=== PATIENT | female | born 1955 | race African-American/Black ===

== ENCOUNTER 2017-10-23 07:13 | Day surgery (SDC) | payer OTHER ==
[2017-10-23 08:49] VITALS: BMI 36.0
[2017-10-23 09:59] VITALS: TEMP 98
[2017-10-23 11:46] VITALS: BP 152/67; PULSE 53
== END 2017-10-23 11:00 | disposition home or self-care (01) ==
LOC: JASU-ENDO 07:13
PROVIDERS: ATTEND Internal Medicine Gastroenterology
PROC: 0DJD8ZZ Inspection of Lower Intestinal Tract, Via Natural or Artificial Opening Endoscopic (ICD-10-PCS; principal; 2017-10-23 09:45)
DX: K62.5 Hemorrhage of anus and rectum (principal); K64.8 Other hemorrhoids; I10 Essential (primary) hypertension; R01.1 Cardiac murmur, unspecified; E78.5 Hyperlipidemia, unspecified; F31.9 Bipolar disorder, unspecified

== ENCOUNTER 2020-07-15 04:38 | Day surgery (SDC) | payer OTHER ==
[2020-07-13 14:46] VITALS: BMI 37.2
[2020-07-15 09:48] VITALS: TEMP 97.1
[2020-07-15 15:22] VITALS: BP 146/85; PULSE 62
== END 2020-07-15 11:20 | disposition home or self-care (01) ==
LOC: JASU-ENDO 04:38
PROVIDERS: ATTEND Internal Medicine Gastroenterology
PROC: 0DB78ZX Excision of Stomach, Pylorus, Via Natural or Artificial Opening Endoscopic, Diagnostic (ICD-10-PCS; principal; 2020-07-15 09:30)
DX: R10.13 Epigastric pain (principal)
CPT/HCPCS: 88305-TC; 88342-TC

== ENCOUNTER 2021-09-16 07:47 | Emergency (ER) | payer OTHER ==
[2021-09-16 07:57] VITALS: TEMP 98.2; BMI 37.2
[2021-09-16 08:52] VITALS: BP 142/58; PULSE 78; RESP 16
[2021-09-16 08:55] LABS: BASO % 0.5 % (0-2.0); EOS % 1.1 % (0-4.5); HEMATOCRIT 34.9 % (32.4-45.2); HEMOGLOBIN 11.2 GM/dL (10.7-15.3); LYMPH % 21.3 % (8-40); MCH 25.5 pg (25.7-33.7); MEAN CELL VOLUME 79.5 fl (80-96); MEAN PLT VOLUME 7.5 fl (7.5-11.1); MONO % 6.9 % (3.8-10.2); NEUT % 70.2 % (42.8-82.8); PLATELET COUNT 287 10^3/uL (134-434); RBC 4.38 M/mm3 (3.60-5.2); RDW 15.6 % (11.6-15.6); WHITE BLOOD COUNT 5.5 K/mm3 (4.0-10.0)
[2021-09-16 09:01] LABS: INR 1.13 (0.83-1.09)
[2021-09-16 09:04] LABS: ACTIVATED PTT 36.1 SECONDS (25.2-36.5)
[2021-09-16 09:31] LABS: ALBUMIN 3.4 g/dl (3.4-5.0); CALCIUM 9.3 mg/dL (8.5-10.1); MAGNESIUM 2.2 mg/dL (1.8-2.4)
[2021-09-16 09:35] LABS: CREATININE 0.8 mg/dL (0.55-1.3)
[2021-09-16 09:36] LABS: BILIRUBIN,TOTAL 0.3 mg/dL (0.2-1); TOT PROT 7.6 g/dl (6.4-8.2)
[2021-09-16 11:03] LABS: BLOOD UREA NITROGEN 14.4 mg/dL (7-18); CALCIUM 8.9 mg/dL (8.5-10.1); MAGNESIUM 2.3 mg/dL (1.8-2.4)
[2021-09-16 11:07] LABS: CREATININE 0.6 mg/dL (0.55-1.3)
[2021-09-16] MEDS ORDERED: ACETAMINOPHEN 1000 MG/100 ML BAG IVPB ONE (11:18)
[2021-09-16] MEDS ORDERED: ACETAMINOPHEN INJECTION 100 ML IVPB ONE (11:19)
== END 2021-09-16 11:48 | disposition home or self-care (01) ==
LOC: JER 07:47
PROC: 3E0333Z Introduction of Anti-inflammatory into Peripheral Vein, Percutaneous Approach (ICD-10-PCS; principal; 2021-09-16)
DX: S76.912A Strain of unspecified muscles, fascia and tendons at thigh level, left thigh, initial encounter (principal); M79.605 Pain in left leg; X50.0XXA Overexertion from strenuous movement or load, initial encounter
CPT/HCPCS: 36415; 80048; 80053; 83735; 85025; 85610; 85730; 93005; 93010; 93971-TC; 99285-25

== ENCOUNTER 2022-06-30 04:08 | Day surgery (SDC) | payer OTHER ==
[2022-05-19 08:22] VITALS: BMI 33.5
[2022-06-30] MEDS ORDERED: LIDOCAINE HCL 1%, 10 MG/ML (10ML VIAL) MDV ONE (07:31)
[2022-06-30] MEDS ORDERED: BUPIVACAINE HCL/PF 0.5% (5MG/ML) 10 ML VIAL ONE (07:31)
[2022-06-30] MEDS ORDERED: LIDOCAINE HCL 1%, 10 MG/ML (20ML VIAL) INF ONE ×4 (07:38→09:03)
[2022-06-30] MEDS ORDERED: BUPIVACAINE HCL/PF 0.5% (5MG/ML) 10 ML VIAL NR ONE ×4 (07:38→09:03)
[2022-06-30] MEDS ORDERED: LIDOCAINE HCL/PF 2% SDV 5ML VIAL ONE (07:59)
[2022-06-30] MEDS ORDERED: MIDAZOLAM HCL 2 MG/2 ML SINGLE DOSE VIAL ONE (08:00)
[2022-06-30] MEDS ORDERED: PROPOFOL 40 ML ONE (08:00)
[2022-06-30] MEDS ORDERED: SUCCINYLCHOLINE CHLORIDE 200 MG/10 ML SYRINGE ONE (08:19)
[2022-06-30] MEDS ORDERED: ROCURONIUM BROMIDE 50 MG/5 ML SYRINGE ONE (08:19)
[2022-06-30] MEDS ORDERED: ceFAZolin SODIUM 1 GM VIAL IVPB ONE (08:47)
[2022-06-30] MEDS ORDERED: ceFAZolin SODIUM 1 GM VIAL ONE (08:48)
[2022-06-30] MEDS ORDERED: DEXAMETHASONE SOD PHOSPHATE 4 MG/1 ML VIAL ONE (08:48)
[2022-06-30] MEDS ORDERED: ONDANSETRON 4 MG/2 ML VIAL ONE (08:48)
[2022-06-30] MEDS ORDERED: PROPOFOL 20 ML ONE (10:18)
[2022-06-30] MEDS ORDERED: ONDANSETRON 4 MG/2 ML VIAL IVPUSH PRN (10:53)
[2022-06-30] MEDS ORDERED: oxyCODONE HCL 5 MG TABLET PO PRN (10:53)
[2022-06-30 12:47] VITALS: RESP 18
[2022-06-30 14:34] VITALS: BP 130/63; PULSE 79; TEMP 98.3
== END 2022-06-30 13:50 | disposition home or self-care (01) ==
LOC: JASU-SURG 04:08
PROVIDERS: ATTEND Surgery
PROC: 0DBU0ZZ Excision of Omentum, Open Approach (ICD-10-PCS; 2022-06-30)
PROC: 0WUF0JZ Supplement Abdominal Wall with Synthetic Substitute, Open Approach (ICD-10-PCS; principal; 2022-06-30 08:30)
DX: K43.2 Incisional hernia without obstruction or gangrene (principal)
CPT/HCPCS: 88304-TC; 88305-TC; 94760

== ENCOUNTER 2023-10-10 15:57 | Emergency (ER) | payer OTHER ==
[2023-10-10 16:10] VITALS: BP 141/82; PULSE 81; RESP 17; TEMP 98.7; BMI 36.8
[2023-10-10] MEDS ORDERED: MECLIZINE HCL 25 MG TABLET (FP) ONE (16:54)
[2023-10-10] MEDS ORDERED: ACETAMINOPHEN 500 MG TABLET (FP) ONE (16:54)
[2023-10-10] MEDS: ACETAMINOPHEN 500 MG TABLET (FP) PO ONE (16:56)
[2023-10-10] MEDS: MECLIZINE HCL 25 MG TABLET (FP) PO ONE (16:56)
== END 2023-10-10 18:01 | disposition home or self-care (01) ==
LOC: JER 15:57
DX: R51.9 Headache, unspecified (principal); R42 Dizziness and giddiness; M54.2 Cervicalgia; M54.6 Pain in thoracic spine; R01.1 Cardiac murmur, unspecified
CPT/HCPCS: 70450-TC; 99284-25

== ENCOUNTER 2024-09-16 22:35 | Observation (INO) | payer OTHER ==
[2024-09-16] MEDS ORDERED: MECLIZINE HCL 12.5 MG TABLET ONE (23:11)
[2024-09-16 23:35] LABS: ABSOLUTE IMMATURE GRANULOCYTES 0.02 x10^3/uL (0.0-0.031); BASOPHILS # 0.02 x10^3/uL (0.01-0.08); EOSINOPHIL % 2.1 % (0.7-5.8); EOSINOPHILS # 0.13 x10^3/uL (0.04-0.36); MCHC 32.0 g/dl (32.2-35.5); MEAN CELL VOLUME 81.4 fl (79.4-94.8); MEAN PLT VOLUME 8.9 fl (9.4-12.3); MONOCYTE # 0.51 x10^3/uL (0.24-0.86); MONOCYTE % 8.1 % (4.7-12.5); RDW 15.9 % (12.4-16.4)
[2024-09-16] MEDS ORDERED: METOCLOPRAMIDE HCL INJECTION 10 MG/2 ML VIAL ONE (23:45)
[2024-09-16] MEDS ORDERED: ACETAMINOPHEN INJECTION 100 ML ONE (23:45)
[2024-09-16] MEDS ORDERED: MAG HYDROX/AL HYDROX/SIMETH 30 ML UNIT-DOSE CUP ONE (23:45)
[2024-09-16] MEDS: METOCLOPRAMIDE HCL INJECTION 10 MG/2 ML VIAL IVPUSH ONE (23:53)
[2024-09-16] MEDS: ACETAMINOPHEN 1000 MG/100 ML BAG IVPB ONE (23:53)
[2024-09-16] MEDS: MECLIZINE HCL 12.5 MG TABLET PO ONE (23:53)
[2024-09-16] MEDS: MAG HYDROX/AL HYDROX/SIMETH 30 ML UNIT-DOSE CUP PO ONE (23:53)
[2024-09-17 00:30] LABS: ALK PHOS 99 U/L (45-117); CO2 27 mmol/L (21-32); CREATININE 0.8 mg/dL (0.55-1.3); GLUCOSE,RANDOM 133 mg/dL (74-106); SGOT/AST 19 U/L (15-37); SGPT/ALT 20 U/L (13-61); TOT PROT 7.3 g/dl (6.4-8.2)
[2024-09-17] MEDS ORDERED: POTASSIUM CHLORIDE TABS 20 MEQ TABLET.ER (FP) PO ONE (01:08)
[2024-09-17] MEDS: POTASSIUM CHLORIDE ORAL LIQUID 20 MEQ/15 ML PO ONE ×2 (01:59→08:21)
[2024-09-17] MEDS: KCL 10 MEQ IVPB 10 MEQ/100 ML INFUS.BAG IVPB SCH (01:59)
[2024-09-17] MEDS ORDERED: IBUPROFEN 400 MG TABLET (FP) PO ONE (03:15)
[2024-09-17] MEDS: IBUPROFEN 400 MG TABLET (FP) PO ONE (03:25)
[2024-09-17] MEDS ORDERED: ASPIRIN 81 MG CHEWABLE TABLETS ONE (06:28)
[2024-09-17] MEDS ORDERED: MAG HYDROX/AL HYDROX/SIMETH 30 ML UNIT-DOSE CUP ONE (06:28)
[2024-09-17 06:38] LABS: URINE APPEARANCE CLEAR; URINE BILIRUBIN NEGATIVE (NEGATIVE); URINE COLOR YELLOW; URINE GLUCOSE (UA) NEGATIVE (NEGATIVE); URINE KETONE NEGATIVE (NEGATIVE); URINE LEUK ESTERASE NEGATIVE (NEGATIVE); URINE NITRITE NEGATIVE (NEGATIVE); URINE PROTEIN NEGATIVE (NEGATIVE); URINE UROBILINOGEN 0.2 mg/dL (0.2-1.0)
[2024-09-17] MEDS: ASPIRIN 325 MG TABLET PO ONE (06:38)
[2024-09-17] MEDS: MAG HYDROX/AL HYDROX/SIMETH 30 ML UNIT-DOSE CUP PO ONE ×2 (06:38→10:20)
[2024-09-17] MEDS: ASPIRIN 81 MG CHEWABLE TABLETS PO ONE (06:38)
[2024-09-17] MEDS ORDERED: POTASSIUM CHLORIDE ORAL LIQUID 20 MEQ/15 ML ONE (08:15)
[2024-09-17] MEDS ORDERED: ACETAMINOPHEN 325 MG TABLET (FP) PO PRN (09:05)
[2024-09-17 10:05] VITALS: BMI 39.0
[2024-09-17] MEDS: ATENOLOL 50 MG TABLET (FP) PO SCH (10:19)
[2024-09-17] MEDS: FAMOTIDINE 20 MG TABLET PO ONE (10:20)
[2024-09-17] MEDS: SODIUM CHLORIDE 1,000 ML IV SCH (10:22)
[2024-09-17] MEDS: METHIMAZOLE 5 MG TABLET PO SCH (10:37)
[2024-09-17 12:25] LABS: CO2 30.0 mmol/L (21-32); GLUCOSE,RANDOM 105.0 mg/dL (74-106)
[2024-09-17 12:28] LABS: CREATININE 0.7 mg/dL (0.55-1.3)
[2024-09-17] MEDS: MAGNESIUM 2GM/50ML STERILE WATER IVPB IVPB ONE (15:01)
[2024-09-17] MEDS: ROSUVASTATIN CA 20 MG TABLET PO SCH (21:59)
[2024-09-17] MEDS: TOPIRAMATE 25 MG TABLET PO SCH (21:59)
[2024-09-17] MEDS ORDERED: ROSUVASTATIN CA 40 MG TABLET PO SCH (22:00)
[2024-09-17] MEDS: PRAMIPEXOLE DIHYDROCHLORIDE 0.125 MG TABLET PO SCH (22:00)
[2024-09-17] MEDS: FAMOTIDINE 20 MG TABLET PO SCH (22:01)
[2024-09-18 06:30] LABS: ABSOLUTE IMMATURE GRANULOCYTES 0.02 x10^3/uL (0.0-0.031); BASOPHILS # 0.02 x10^3/uL (0.01-0.08); EOSINOPHIL % 3.2 % (0.7-5.8); EOSINOPHILS # 0.17 x10^3/uL (0.04-0.36); MCHC 31.7 g/dl (32.2-35.5); MEAN CELL VOLUME 82.9 fl (79.4-94.8); MEAN PLT VOLUME 9.3 fl (9.4-12.3); MONOCYTE # 0.44 x10^3/uL (0.24-0.86); MONOCYTE % 8.3 % (4.7-12.5); RDW 16.3 % (12.4-16.4)
[2024-09-18 06:59] LABS: CO2 29.0 mmol/L (21-32); GLUCOSE,RANDOM 91.0 mg/dL (74-106)
[2024-09-18 07:03] LABS: CREATININE 0.7 mg/dL (0.55-1.3); SGOT/AST 17.0 U/L (15-37); SGPT/ALT 17.0 U/L (13-61)
[2024-09-18 07:04] LABS: TOT PROT 6.4 g/dl (6.4-8.2)
[2024-09-18 07:05] LABS: ALK PHOS 84.0 U/L (45-117)
[2024-09-18] MEDS: ENOXAPARIN NA (PORCINE) 40 MG/0.4 ML DISP.SYRIN SQ SCH (09:30)
[2024-09-18] MEDS: ASPIRIN 81 MG CHEWABLE TABLETS PO SCH (09:33)
[2024-09-18 14:43] VITALS: BP 100/53; PULSE 57; RESP 17; TEMP 98.3
== END 2024-09-18 15:18 | disposition home or self-care (01) ==
LOC: JER 22:35 → JERBED 09-17 07:48 → J4W 09-17 09:15
PROVIDERS: ADMIT Internal Medicine; ATTEND Internal Medicine
DX: G43.809 Other migraine, not intractable, without status migrainosus (principal); R07.89 Other chest pain; E87.6 Hypokalemia; R79.89 Other specified abnormal findings of blood chemistry; I10 Essential (primary) hypertension; R00.1 Bradycardia, unspecified; D50.9 Iron deficiency anemia, unspecified; R01.1 Cardiac murmur, unspecified; E78.5 Hyperlipidemia, unspecified; E05.90 Thyrotoxicosis, unspecified without thyrotoxic crisis or storm; K21.9 Gastro-esophageal reflux disease without esophagitis; G25.81 Restless legs syndrome; Z79.82 Long term (current) use of aspirin
CPT/HCPCS: 36415; 71045-TC-FY; 80048; 80053; 81003; 83735; 84100; 84443; 84484; 85025; 87086; 93005; 93010; 93306-TC; 96361; 96365; 96366; 96372; 96374; 96375; 97116-GP; 97161-GP; 99285-25; G0378